=== PATIENT | female | born 1950 | race African-American/Black ===

== ENCOUNTER 2019-10-05 10:45 | Emergency (ER) | payer MEDICARE ==
[~2019-10-05] VITALS: Ht 165.1 cm; Wt 59.0 kg
[2019-10-05] MEDS ORDERED: ACETAMINOPHEN 325MG TABLET PO ONE (11:45)
[2019-10-05 13:16] VITALS: BP 165/85
== END 2019-10-05 13:19 | disposition home or self-care (01) ==
LOC: ER 10:45
DX: M62.830 Muscle spasm of back (principal); G89.29 Other chronic pain; W06.XXXA Fall from bed, initial encounter; Y93.89 Activity, other specified; Y92.89 Other specified places as the place of occurrence of the external cause; Y99.8 Other external cause status
CPT/HCPCS: 99283